=== PATIENT | male | born 1970 | race American Indian/Alaskan Native ===

== ENCOUNTER 2018-03-12 07:49 | Emergency (ER) | payer OTHER, SELFPAY ==
[2018-03-12 07:58] VITALS: BP 163/115; PULSE 78; RESP 16; TEMP 37.2; O2SAT 97; BMI 23.3
--- NOTE | 2018-03-12 08:00 | PC.NURSE ---
pt states he has history of high blood pressure, reports he should be taking something for it but does not.
[2018-03-12 08:45] VITALS: BP 82/50; PULSE 89; RESP 17; O2SAT 96
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
--- NOTE | 2018-03-12 09:41 | DI.RAD.S_ITS ---
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 COMPARISON: None. FINDINGS: Bones: No fractures or dislocations. No suspicious bony lesions. 12 pairs of ribs are noted, and appear intact where visualized. Soft tissues: No paravertebral stripe thickening. IMPRESSION: No acute radiographic findings. If there is continued pain, followup exam or additional imaging such as MRI or CT could be performed for further assessment. Dictated by: Lisandra Banda M.D. on 03/12/2018 at 10:04 Approved by: Lisandra Banda M.D. on 03/12/2018 at 10:05
--- NOTE | 2018-03-12 09:44 | ED_ITS ---
HPI - Extremity Problem General Chief complaint: Extremity Problem,Nontraumatic Stated complaint: pain in right arm Time Seen by Provider: 03/12/18 09:37 Source: patient Mode of arrival: ambulatory Limitations: no limitations History of Present Illness HPI Narrative: This is a 47-year-old male who comes to the emergency department with complaint of right upper thoracic and extremity pain. Patient states it is radiating down his arm but is mostly in the scapular area. Patient states he has felt some tingling Um occasionally. 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 Patient states he is able to lift his arm without any issue. He denies any recent pain or injury. He states he has had some tingling in the left arm in the past but never had symptoms on the right side. He denies any other symptoms. He denies any other medical problems, denies any prior surgeries. 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) ENT Ears, Nose, Mouth, and Throat: Denies neck pain Musculoskeletal Reports as per HPI (Decreased wedding transportation driver), Reports back pain (Thoracic), Denies arthralgias, Denies joint swelling, Denies limited range of motion, Denies neck pain, Denies numbness, Reports radiating pain into limb and Reports tingling Integumentary/Breasts Denies rash Neurologic Denies numbness, Denies sensory deficit, Reports tingling and Reports weakness ( Community Support Worker on right) Exam Narrative Exam Narrative: GENERAL: Alert and oriented x three, well-nourished, well- appearing male in mild distress. HEENT: Head normocephalic, atraumatic, EOMI, pupils reactive, face symmetric, moist mucous membranes NECK: Supple, full range of motion CARDIOVASCULAR: Regular rate and rhythm without murmurs, rubs or gallops. RESPIRATORY: Breath sounds equal bilaterally, no wheezes rales or rhonchi. BACK: No cervical, thoracic or lumbar vertebral point tenderness. Patient has normal range of motion. Patient's gait is normal. Muscle strength is 5/5 in upper extremities, wedding transportation driver is equal bilaterally, DTRs are 2/4 upper extremities. 2 + radial pulse bilaterally. Sensation is intact in the lower extremities. No rashes or skin changes to the neck upper back or arm. EXTREMITIES: Normal range of motion, no clubbing or edema. Neurovascularly intact NEUROLOGICAL: Cranial nerves II through XII grossly intact. Moving all extremities SKIN: Warm, dry, no petechiae, no rashes or lesions. Initial Vital Signs Initial Vital Signs: Vital Signs Temperature 99.0 F 03/12/18 07:58 Pulse Rate 78 03/12/18 07:58 Respiratory Rate 16 03/12/18 07:58 Blood Pressure 163/115 H 03/12/18 07:58 Pulse Oximetry 97 03/12/18 07:58 Course Orders Ordered: Discontinued Medications Sodium Chloride (Normal Saline 0.9%) 1,000 mls @ 1,000 mls/hr IV BOLUS ONE Stop: 03/12/18 09:32 Last Admin: 03/12/18 09:45 Dose: Not Given Ketorolac Tromethamine (Toradol) 60 mg IM NOW ONE Stop: 03/12/18 09:44 Last Admin: 03/12/18 09:50 Dose: 60 mg Vital Signs - 8 hr 03/12/18 07:58 03/12/18 08:45 Temperature 99.0 F Pulse Rate 78 89 Respiratory Rate 16 17 Blood Pressure 163/115 H Blood Pressure [Right Arm] 82/50 L Pulse Oximetry 97 96 MDM - Extremity (Nontraumatic) Imaging Data T spine x-ray: Radiologist's impression: [address] [id number] XRay Report Signed Patient: Joel Aragon JMR#: [id number] : 1970Acct:[id number] Age/Sex: 47 / MDate of Service: 03/12/18 Loc: ED Accession Number: [id number] Procedure: XR thoracic spine 3V Ordering Provider: Jesenia Allen D.O. 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 COMPARISON: None. FINDINGS: Bones: No fractures or dislocations. No suspicious bony lesions. 12 pairs of ribs are noted, and appear intact where visualized. Soft tissues: No paravertebral stripe thickening. IMPRESSION: No acute radiographic findings. If there is continued pain, followup exam or additional imaging such as MRI or CT could be performed for further assessment. Dictated by: Lisandra Banda M.D. on 03/12/2018 at 10:04 Approved by: Lisandra Banda M.D. on 03/12/2018 at 10:05 Discharge Plan Departure Patient Disposition: Home Clinical Impression: Radicular pain of right upper extremity Discharge Date/Time: 03/12/18 11:22 Interventions: ED Discharge Assessment Last Done: 03/12/18 11:22 Instructions: DI for Cervical Radiculopathy Activity Restrictions/Additional Instructions: Follow-up with Orthopedic surgery in the next 3-5 days. Call today for an appointment. Take pain medications as prescribed, these medications can make you sleepy do not drive, perform hazards activities or make any major decisions while taking them. You may take ibuprofen up to 800 mg every 8 hr as needed for pain. You may also take Tylenol 1000 mg every 8 hr for pain with this. Return to the emergency department for worsening weakness, inability to lift your arm for objects, new numbness or loss of sensation or rapidly increasing pain. Prescriptions: New cyclobenzaprine 10 mg tablet 10 mg PO TID PRN (Reason: muscle spasm) Qty: 7 RF: 0 prednisone 20 mg tablet 40 mg PO DAILY 5 Days Qty: 10 RF: 0 Referrals: Shaka Mcmanus MD [Physician] - Stand Alone Forms: Work/School Restrictions
[2018-03-12] MEDS: KETOROLAC 60 MG/2 ML VIAL IM (09:50)
[2018-03-12 11:22] VITALS: BP 181/115; PULSE 66; RESP 20; O2SAT 100
== END 2018-03-12 11:22 | disposition home or self-care (01) ==
PROVIDERS: Emergency Provider Emergency Medicine
DX: M79.2 Neuralgia and neuritis, unspecified (principal)
CPT/HCPCS: 72072; 96372; 99282; 99283; J1885